=== PATIENT | female | born 1935 ===

== ENCOUNTER 2019-02-05 09:50 | Outpatient (CLI) | payer OTHER | END 2019-02-05 10:31 | disposition home or self-care (01) | LOC: LAB 09:50 | DX: E87.1 Hypo-osmolality and hyponatremia (principal); B33.8 Other specified viral diseases ==

== ENCOUNTER → 2019-02-19 08:21 | Outpatient (CLI) | payer OTHER | END | disposition home or self-care (01) | LOC: LAB 08:21 | DX: D50.8 Other iron deficiency anemias (principal); E87.1 Hypo-osmolality and hyponatremia ==